=== PATIENT | female | born 1985 | race Asian ===

== ENCOUNTER → 2016-11-23 | Outpatient (CLI) | payer OTHER ==
[~2016-11-23] MED LIST: ASPI325T45 PO; HYDR-5688 PO
--- NOTE | 2016-11-23 17:12 | DIAGNOSTIC IMAGING REPORT ---
MRI THE RIGHT KNEE NO CONTRAST CLINICAL HISTORY: Right knee pain. Trauma. COMPARISON STUDY: No previous studies for comparison. FINDINGS: Imaging was performed the sagittal, coronal, and axial planes. There is a suprapatellar joint effusion. There is marrow edema involving the posterior aspect of the tibial plateau, consistent with a bone bruise. There is a tear the anterior cruciate ligament. The posterior cruciate ligament appears intact. The quadriceps and patellar tendons appear intact. The lateral collateral ligament appears intact. There is a minimal medial collateral ligament strain. The medial meniscus appears intact. There is a lateral meniscal tear with a flipped meniscal fragment IMPRESSION: 1. Tear of the anterior cruciate ligament 2. Lateral meniscal tear 3. Minimal medial collateral ligament strain 4. Bone bruise involving the posterior aspect of the tibial plateau 5. Joint effusion Electronically signed by: Dinesh Miranda M.D. 11/23/2016 5:10 PM Dictated Date/Time: 11/23/2016 5:05 PM
== END | disposition home or self-care (01) ==
PROVIDERS: ATTEND Family Medicine
DX: S89.91XA Unspecified injury of right lower leg, initial encounter (principal); X58.XXXA Exposure to other specified factors, initial encounter

== ENCOUNTER → 2016-12-03 | Day surgery (SDC) | payer OTHER ==
[2016-11-27 08:56] VITALS: Ht 162.6 cm; Wt 52.0 kg
[~2016-12-03] VITALS: Ht 162.6 cm; Wt 52.0 kg
[~2016-12-03] MED LIST changes: +ATROPINE SULFATE 0.1 MG/ML 5ML SYR IV PRN; +BUPIVACAINE 0.5 % 5 MG/1 ML MPF 30ML VIAL ONE; +BUPIVACAINE/EPINEPHRINE 0.5% MPF 1:200,000 10 ML VIAL ONE; +CEFAZOLIN 1000MG/55 ML D5W IV SCH; +CEFAZOLIN IV 1,000 MG in DEXTROSE 5% 50ML 50 ML IV SCH; +CEFAZOLIN SOD 1 GM VIAL ONE; +DEXAMETHASONE SOD INJ 4 MG/ML VIAL ONE; +EpHEDrine SULFATE INJ 50 MG/ML AMP IV PRN; +EpINEphrine INJ 1MG/ML AMP 1 MG/ML AMP ONE; +FENTANYL CITRATE INJ 50 MCG/1 ML 2 ML VIAL ONE; +GLYCOPYRROLATE INJ 0.2 MG/ML VIAL ONE; +LACTATED RINGER'S 1000ML 1,000 ML IV SCH; +LIDOCAINE HCL 2% 2 ML VIAL (20MG/ML) ONE; +LIDOCAINE/EPINEPHRINE 1% INJ 50 ML VIAL ONE; +MIDAZOLAM HCL 1 MG/ML 2ML VIAL ONE; +MoRPHine SULFATE 2 MG/ML CARP IV PRN; +MoRPHine SULFATE 4 MG/ML 1 ML CARP\\VIAL IV PRN; +ONDANSETRON INJ 2 MG/ML 2 ML VIAL IV PRN; +ONDANSETRON INJ 2 MG/ML 2 ML VIAL ONE; +OXYCODONE/ACETAMINOPHEN 5-325 TAB PO PRN; +PROMETHAZINE HCL INJ 6.25 MG in SODIUM CHLORIDE 0.9% 50ML 50 ML IV PRN; +PROPOFOL IV EMULSION 10 MG/ML 20 ML VIAL IV ONE; +SCOPOLAMINE 1.5 MG TDSY TD ONE; +SODIUM CHLORIDE 0.9% 1000ML 1,000 ML IV SCH; +SODIUM CHLORIDE 0.9% INJ 10 ML VIAL ONE
--- NOTE | 2016-12-03 06:46 | History & Physical Bridge Note ---
H&P Re-Evaluation Bridge Note: I have examined the patient, reviewed the History & Physical and in the interval since the performance of the History & Physical I have noted the following changes of clinical significance: No changes noted
[2016-12-03] MEDS: EpINEphrine HCL INJ 1 MG/ML 5ML SYRINGE ONE ×2 (10:30→10:37)
--- NOTE | 2016-12-03 12:28 | Discharge Instructions-SurgCtr ---
Discharge Instructions Date of Service Dec 03, 2016. Visit Reason for Visit: Right Knee Acl, Lateral Meniscus Tear Discharge Discharge Diagnosis / Problem: right knee anterior cruciate ligament tear, lateral meniscus tear Discharge Goals Goal(s): Decrease discomfort, Improve function, Increase independence Activity Recommendations Activity Limitations: per Instructions/Follow-up section Weightbearing Status: Right non-weightbearing Anesthesia . Post Anesthesia Instructions: If you have had General Anesthesia or IV Sedation: * Do not drive today. * Resume driving when surgeon permits. * Do not make important decisions or sign legal documents today. * Call surgeon for: 1. Temperature elevations greater than 101 degrees F. 2. Uncontrollable pain. 3. Excessive bleeding. 4. Persistent nausea and vomiting. 5. Medication intolerance (nausea, vomiting or rash). * For nausea and vomiting use only clear liquids such as: tea, soda, bouillon until nausea subsides, then gradually increase diet as tolerated. * If you have any concerns or questions, call your surgeon's office. If physician is unavailable and it is an emergency, call 911 or go to the nearest emergency room. . Instructions / Follow-Up Instructions / Follow-Up The following instructions are a useful guide to questions you may have after your Anterior Cruciate Ligament Reconstruction surgery. If you have any questions contact the office at . ACTIVITY RECOMMENDATIONS: * Heavy manual labor is not permitted until 4-6 months after surgery. * Sports are not permitted until 6-9 months after surgery. * Return to activity is individualized. * DRIVING: Driving is not permitted until 3-4 weeks after surgery at a minimum. Please ask your doctor when it is safe to resume driving. If you have an automatic vehicle and your left leg has been operated on, then you may begin driving as soon as you are comfortable and can drive safely. * BATHING: You may shower or sponge-bathe immediately after surgery. The dressing will need to be covered with a plastic bag or plastic wrap until the dressing is changed on the fourth or fifth day after surgery. Once the dressing has been changed on the fourth or fifth day after surgery, you may shower and get the incision wet. * Wash with regular soap and water. * Do not bathe (submerge the incision), soak, swim or use a hot tub until the incision is completely healed over with normal skin and the doctor has given the OK to proceed. * There is no need to apply any ointments, powders or salves to your incision. * Do not apply alcohol or hydrogen peroxide directly to the incision. Diluted peroxide (50:50 mixture with sterile saline) may be used to clean dried blood from around the incision area. WORK/SCHOOL: * You may return to sedentary work or school when you are feeling comfortable. This is usually 3-7 days after surgery. * Expect increased discomfort with increased activity. Continue to elevate and ice the leg as much as possible. DIET: * Resume previous diet. MEDICATIONS: * You will have a prescription for pain medication and an anti-inflammatory medication after surgery. Use the pain pills for severe pain and the anti-inflammatory for less severe pain. * Once the pain pills have run out, try to use the anti-inflammatory. If this is not effective then contact the office for assistance. * The pain medication may cause nausea, constipation and sleepiness. You should see how they affect you before driving or similar activity. * The anti-inflammatory may cause stomach upset and bleeding. If this occurs, let your doctor know immediately . * Some patients may need blood clot prevention. This can be done with either a pill or a simple shot. Your doctor will advise you on when to begin these medications and how to take them. * Do not take aspirin or other anti-inflammatory products (i.e. Advil or Aleve ) if taking blood thinner medication. * Take a stool softener like Colace or a stimulant like Senokot to prevent constipation. SPECIAL CARE INSTRUCTIONS: The following instructions are a useful guide to questions you may have after your surgery. If you have any questions contact the office at . ICE: * You have the option of an ice cooler, gel packs or ice bags. * If you have an ice cooler, refer to the instructions for that device. * If you do not have an ice cooler, then you will need to use ice bags or gel packs. * Do not apply ice directly to the skin. * Use a thin dressing or stockinet between the skin and ice bag. * Apply ice for 20-30 minutes and repeat every 2-4 hours. This is especially important for the first 7-10 days after surgery. * Once the pain improves, use ice as needed. * The ice cooler can be used continuously. ELEVATION: * Keep your leg elevated at or above the level of your heart as much as possible. * Expect some increased discomfort and swelling if you are standing for any length of time. * When lying down, avoid placing anything under your knee. Rather, prop your leg up by placing several pillows under your heel or calf. DRESSING: * Your dressing will be changed at your first therapy appointment approximately 4-5 days after surgery. * Band-Aids, tape strips or gauze may be applied. You may then change your dressing daily. * Always wash your hands prior to touching the incision area. * Reapply dressing followed by the Conner wrap or Tubi-mailmaster stockinet, ice cooling pad and then the brace. * Once the stitches are removed, you may leave the wound open to air or cover with an Conner Bandage or Tubi-mailmaster stockinet. * If you have been given a white elastic stocking (PARUL hose), wear as much as possible for the first 1-3 weeks depending on swelling. * Expect some bloody drainage for the first few days after surgery. * Leave the tape strips in place for 5-7 days. * Band-Aids and gauze may be changed daily. CRUTCHES: * You will need to use crutches after surgery. * Until your first doctor's appointment, you must use your crutches at all times when walking and should put no more than 50% of your normal weight on the surgical leg. * After your first doctor's appointment, you may gradually progress to full weight bearing and discontinue crutches as tolerated under the guidance of your therapist. * If you have had a microfracture procedure done, you may be advised to be non- weight bearing for up to 6 weeks. BRACE: * After surgery, you will be placed into a range of motion brace locked with your leg straight. This brace is to be worn at all times when walking (even with the crutches) and sleeping until your first doctors appointment. * The brace may be removed for therapy. * After your first therapy appointment, your therapist will open the brace to allow bending of the knee once your muscles are working better. * Until your first doctor's appointment, you should sleep with your brace locked with your knee fully straight. * If you have chosen to use a functional ACL brace then this brace will be supplied about 2-3 months after your surgery. During that time, you will attend therapy 2- 3 times per week. You will also need to do daily exercises for range of motion and strength as instructed. PROBLEMS/QUESTIONS: * If you have any problems such as severe pain, numbness, tingling or high fevers or if you have any questions, please contact the office at [phone]. * It is not uncommon to have some numbness and tingling after the surgery especially if you have had a nerve block done. This should gradually improve over the first 1- 2 days. If this persists longer or worsens then contact the office. FOLLOW UP VISIT: * If not already scheduled, please call the office at to schedule follow-up appointments for approximately 10 days and one month after surgery followed by monthly appointments thereafter. * You will start physical therapy on 12/07/2016 at 10:30 AM. * You have a follow-up appointment with Dr. Hall on 12/16/2016 at 1:00 PM Diet Recommendations Home Diet: no limitations, resume previous diet Pending Studies Studies pending at discharge: no Medical Emergencies . Who to Call and When: Medical Emergencies: If at any time you feel your situation is an emergency, please call 911 immediately. . Non-Emergent Contact Non-Emergency issues call your: Surgeon Call Non-Emergent contact if: temperature is above 101, your pain is not controlled, wound has increased drainage, wound has increased redness, wound has increased pain, you have any medication questions . . "Provider Documentation" section prepared by Betzaida Domínguez. . [place] Drug Monitoring Program Search Results: patient reviewed within database, no issues identified
--- NOTE | 2016-12-03 12:32 | [facility] Operative Report ---
Operative Report Operative Date Dec 03, 2016. Pre-Operative Diagnosis Right Knee Anterior Cruciate Ligament, Lateral Meniscus Tear Post-Operative Diagnosis same as preop Procedure(s) Performed Right Knee Arthroscopic Anterior Cruciate Ligament Reconstruction With Patella Bone Tendon Bone Autograft, Right Lateral Meniscus Repair Surgeon Dr. Hall Battery Starter Surgeon(s) Betzaida Domínguez PA-C, Dr. Tez Martinez Estimated Blood Loss 10ml Findings Anterior cruciate ligament tear right knee, bucket handle lateral meniscal tear Specimens none per surgeon Drains none Anesthesia Gen. with peripheral nerve block Complication(s) None Disposition Recovery Room / PACU Indications Patient is a 31-year-old female status post right knee injury approximately 2 weeks ago. She had immediate pain and felt a pop in her right knee. Unable to comfortably weight-bear. He was seen and evaluated at [facility] and an MRI was ordered. She was referred to our office for orthopedic evaluation and treatment. X-rays are negative for fracture. MRI showed complete anterior cruciate ligament tear with bucket-handle lateral meniscal tear. Due to these findings surgical intervention was recommended. She agreed to proceed with surgery. Risks and complications were discussed. Informed consent was obtained. Description of Procedure Patient was taken to the operating room and placed under general anesthesia. She was given a peripheral nerve block preoperatively. She was given 1 g of IV Ancef for surgical prophylaxis. Timeout was performed. She was prepped and draped in routine sterile fashion. I was present the entire case, please see Dr. Hall's operative report for further detail. Patient was awakened and taken to the recovery room in stable condition. I attest to the content of the Intraoperative Record and any orders documented therein. Any exceptions are noted below.
[2016-12-03] MEDS: FENTANYL CITRATE INJ 50 MCG/1 ML 2 ML VIAL IV PRN ×2 (12:46→13:03)
[2016-12-03 13:47] VITALS: TEMP 36.5
--- NOTE | 2016-12-03 14:06 | Anesthesia Progress Nt - [facility] ---
Anesthesia Post Op Note Date & Time Dec 03, 2016 at 14:06 Vital Signs Pain Intensity: 4 Vital Signs Past 12 Hours Date Time Temp Pulse Resp B/P (MAP) Pulse Ox O2 Delivery O2 Flow Rate FiO2 12/03/16 13:47 36.5 78 16 135/87 (103) 100 Room Air 12/03/16 13:36 69 18 100 12/03/16 13:36 68 18 12/03/16 13:35 140/95 12/03/16 13:34 36.7 66 16 140/95 (81) 100 Room Air 12/03/16 13:31 60 23 12/03/16 13:31 62 23 99 12/03/16 13:30 130/94 12/03/16 13:26 76 15 12/03/16 13:26 71 15 100 12/03/16 13:25 145/96 12/03/16 13:21 86 16 12/03/16 13:21 86 16 100 12/03/16 13:20 134/95 12/03/16 13:16 70 18 100 12/03/16 13:16 68 18 12/03/16 13:15 136/96 12/03/16 13:11 61 15 12/03/16 13:11 60 15 100 12/03/16 13:10 138/98 12/03/16 13:06 58 13 12/03/16 13:06 56 13 100 12/03/16 13:05 138/103 12/03/16 13:01 72 18 12/03/16 13:01 73 18 100 12/03/16 13:00 135/95 12/03/16 12:56 67 23 12/03/16 12:56 67 23 100 12/03/16 12:55 138/100 12/03/16 12:51 62 25 12/03/16 12:51 61 25 100 12/03/16 12:50 138/90 12/03/16 12:46 65 21 100 12/03/16 12:46 65 21 12/03/16 12:45 138/98 12/03/16 12:41 79 25 12/03/16 12:41 78 25 100 12/03/16 12:40 134/110 12/03/16 12:36 34 12/03/16 12:36 91 34 151/109 12/03/16 12:35 36.7 83 24 151/109 100 Mask 5 12/03/16 08:55 0 12/03/16 08:51 109/74 12/03/16 08:50 69 12/03/16 08:50 69 17 100 12/03/16 08:46 112/72 12/03/16 08:45 76 0 100 12/03/16 08:45 76 12/03/16 08:41 118/78 12/03/16 08:40 73 12/03/16 08:40 74 19 100 12/03/16 08:36 117/79 12/03/16 08:35 66 14 100 12/03/16 08:35 66 12/03/16 08:32 121/85 12/03/16 08:30 64 12/03/16 08:30 63 13 100 12/03/16 08:26 125/87 12/03/16 08:25 82 12/03/16 08:25 81 23 100 12/03/16 08:21 128/89 12/03/16 08:20 65 12/03/16 08:20 64 0 100 12/03/16 08:16 130/95 12/03/16 08:15 70 0 100 12/03/16 08:15 71 12/03/16 08:11 128/92 12/03/16 08:10 71 12/03/16 08:10 72 0 100 12/03/16 08:06 138/84 12/03/16 08:05 69 12/03/16 08:05 67 0 100 12/03/16 08:01 127/88 12/03/16 08:00 69 12/03/16 08:00 67 0 100 12/03/16 06:52 36.8 75 16 137/93 (108) 99 Room Air 12/03/16 06:43 137/93 Notes Mental Status: alert / awake / arousable, participated in evaluation Pt Amnestic to Procedure: Yes Nausea / Vomiting: adequately controlled Pain: adequately controlled Airway Patency, RR, SpO2: stable & adequate BP & HR: stable & adequate Hydration State: stable & adequate Anesthetic Complications: no major complications apparent
[2016-12-03 14:15] VITALS: BP 139/87; PULSE 66; O2SAT 99
--- NOTE | 2016-12-03 16:32 | [facility] Operative Report ---
Operative Report Operative Date Dec 03, 2016. Pre-Operative Diagnosis Right Knee Anterior Cruciate Ligament, Lateral Meniscus Tear Post-Operative Diagnosis same as preop Procedure(s) Performed Right Knee Arthroscopic Anterior Cruciate Ligament Reconstruction With Patella Bone Tendon Bone Autograft, Right Lateral Meniscus Repair Surgeon Dr. Hall Sighter Surgeon(s) Betzaida Domínguez PA-C, Dr. Tez Martinez Estimated Blood Loss 10ml Findings Lateral meniscus tear bucket handle type complete tear of the anterior cruciate ligament chronic renal chondrosis medial femoral condyle Specimens none per surgeon Drains none Anesthesia laryngeal mask with peripheral nerve block Complication(s) None Disposition Recovery Room / PACU Implants Multiple sutures and inferior screws 2 Indications Patient's 31-year-old female from [place]. She has a history of a partial anterior cruciate ligament tear approximately 10 years ago. She recently had an injury jumping resulting in a bucket-handle tear of her lateral meniscus. She's been seen in a violated in the office and MRI confirms the diagnosis. Treatment options risks and benefits were discussed and she has elected to proceed with operative intervention. Informed consent was obtained. Description of Procedure Patient was identified as alan Schafer. She identified the operative site as the right knee. A preoperative surgical timeout was performed. Appropriate dose of IV antibiotics was given. She was taken the operating room positioned supine on the operating table in the anesthetic was administered. A lateral posterior she is for stressing the knee a tourniquet was applied to the right thigh. Her right leg was prepped and draped in usual sterile fashion including the foot. Her left knee demonstrated range of motion 10/0/155. Her right knee demonstrated range of motion for/0/135. She had a 2+ positive John Paul her knee was otherwise stable. Pivot shift was not assessed. DVT prophylaxis with early patient mobility and aspirin postoperatively foot pumps intraoperatively. The procedure began by establishing inferolateral viewing portal superior lateral outflow portal and inferomedial working portal. Diagnostic arthroscopy was then performed. There is no pathology in the suprapatellar pouch the medial and lateral gutters were unremarkable the articular surfaces of the patella and trochlea were normal. The medial compartment demonstrated an normal intact medial meniscus and the articular surfaces. The posterior medial and lateral compartment views were unremarkable except as outlined later. Intercondylar notch showed a chronically absent anterior cruciate ligament with a normal-appearing PCL. The retropatellar fat pad was debrided. There was some fibrillation on the medial femoral condyle but no notable depth to any type of cartilage damage. The lateral compartment showed a bucket-handle tear which was the first thing done during the surgery. This was reduced back into position. The articular surfaces looked normal. Tear extended back to the posterior horn it was within 3-5 mm of the meniscocapsular junction with reasonable quality tissue. Extended just anterior to the popliteal hiatus. There was elected. The. Meniscal synovium and tear site was debrided with a rasp and shaver. ceteriX novostitch was utilized for the repair. 4 vertical mattress stitches were placed through the periphery and central portion of the tear. This provided an excellent repair. It was excellent stability and meniscal apposition. The knots were tied with a S COI note and the modified Fairton knot. Prior to starting the meniscal repair the limb was exsanguinated with the Esmarch tourniquet inflated 225 mmHg. Attention was turned then to the anterior cruciate ligament reconstruction. A midline longitudinal incision was made full-thickness this flaps were created down to the patellar tendon. The peritenon was elevated off of the tendon. The patellar tendon width was approximately 27-28 mm. The central 9 mm was harvested in the usual standard fashion. He was taken to the back table or other where the graft was prepared to an overall length of 95 mm with 9 x 22 patellar block and 9 x 27 tibial block. Tissue the lateral notch and remnants of the anterior cruciate ligament which were very minimal were debrided. The anatomical loss centers of the femoral tibial anterior cruciate ligament attachments were noted based on anatomical landmarks including the medial eminence ridge anterior horn of the lateral meniscus retro-eminence ridge. On the femoral side the lateral bifurcate ridge and the lateral intercondylar ridges were utilized. This was double checked with the ruler technique. Power holes made in the appropriate place on the femoral side. He was placed in a hyperflexed position and through an accessory medial portal a 9 mm diameter socket 25 mm in depth was drilled. Low-profile reamer was utilized. The bone depth was 30 mm. Eventually a shuttling suture was applied. On the tibial side I guidepin was drilled and placed the tunnel length of 30 mm and a 9 mm tunnel was created at the anatomical center of the anterior cruciate ligament footprint. The intra-and extra-articular entrances of the tunnel were cleaned and prepared. Beveled with a rasp. The tibial tunnel was drilled first followed by the femoral tunnel. The knee was cleaned of bony debris. The anterior cruciate ligament graft was passed into place using the shuttling stitch. It fit securely. There is no roof wall or PCL impingement there was excellent tension within the graft. It was fixated with an 8 x 20 round head interference screw on the femoral side and an 8 x 20 threaded interference screw on the tibial side. The tibial side the bone block was flushed with the entrance of the tunnel and the screw was flush with it. Any tightened 2-3 mm in terminal extension. There was no roof wall or PCL impingement. The graft had excellent tension when probed. The knee was held in axonal hyperextension which was approximate 4 for this knee. Shift was eliminated and the John Paul was negative endpoint firm. Graft was inspected intra-articularly. The patellar tendon defect was reapproximated with #1 Vicryl. The patellar defect was bone grafted. The peritenon was then closed with running and interrupted 2-0 Vicryl. The skin was closed with 2-0 Vicryl and the skin with 4 -0 Monocryl subcuticular. The leg was cleaned with wet and dry sponges. A soft sterile dressing was applied along the full length Conner wrap and a hinged brace locked in extension. The patient tolerated the procedure well she was awakened from anesthesia and taken to the recovery room stable condition. There were no specimens or complications. Counts were correct in the case. Blood loss was minimal. At the conclusion operations both patient's friend informed of my findings in detail postoperative instructions were given. He'll be rehabilitated according to the anterior cruciate ligament rehabilitation protocol. I'll likely back things off a little bit based upon her age and associated pathology. Tourniquet was let down at the conclusion the procedure after approximately 130 minutes of inflation there is no significant bleeding. Hemostasis performed with the electrocautery and pressure. I attest to the content of the Intraoperative Record and any orders documented therein. Any exceptions are noted below.
== END | disposition home or self-care (01) ==
LOC: X.SURG 06:15
PROVIDERS: ATTEND Physical Medicine & Rehabilitation Sports Medicine
DX: S83.511A Sprain of anterior cruciate ligament of right knee, initial encounter (principal); S83.251A Bucket-handle tear of lateral meniscus, current injury, right knee, initial encounter; X50.9XXA Other and unspecified overexertion or strenuous movements or postures, initial encounter; B18.1 Chronic viral hepatitis B without delta-agent; Z90.721 Acquired absence of ovaries, unilateral; Z82.49 Family history of ischemic heart disease and other diseases of the circulatory system

== ENCOUNTER → 2016-12-16 | Outpatient (CLI) | payer OTHER ==
[~2016-12-16] MED LIST changes: -ATROPINE SULFATE 0.1 MG/ML 5ML SYR IV PRN; -BUPIVACAINE 0.5 % 5 MG/1 ML MPF 30ML VIAL ONE; -BUPIVACAINE/EPINEPHRINE 0.5% MPF 1:200,000 10 ML VIAL ONE; -CEFAZOLIN 1000MG/55 ML D5W IV SCH; -CEFAZOLIN IV 1,000 MG in DEXTROSE 5% 50ML 50 ML IV SCH; -CEFAZOLIN SOD 1 GM VIAL ONE; -DEXAMETHASONE SOD INJ 4 MG/ML VIAL ONE; -EpHEDrine SULFATE INJ 50 MG/ML AMP IV PRN; -EpINEphrine INJ 1MG/ML AMP 1 MG/ML AMP ONE; -FENTANYL CITRATE INJ 50 MCG/1 ML 2 ML VIAL ONE; -GLYCOPYRROLATE INJ 0.2 MG/ML VIAL ONE; -LACTATED RINGER'S 1000ML 1,000 ML IV SCH; -LIDOCAINE HCL 2% 2 ML VIAL (20MG/ML) ONE; -LIDOCAINE/EPINEPHRINE 1% INJ 50 ML VIAL ONE; -MIDAZOLAM HCL 1 MG/ML 2ML VIAL ONE; -MoRPHine SULFATE 2 MG/ML CARP IV PRN; -MoRPHine SULFATE 4 MG/ML 1 ML CARP\\VIAL IV PRN; -ONDANSETRON INJ 2 MG/ML 2 ML VIAL IV PRN; -ONDANSETRON INJ 2 MG/ML 2 ML VIAL ONE; -OXYCODONE/ACETAMINOPHEN 5-325 TAB PO PRN; -PROMETHAZINE HCL INJ 6.25 MG in SODIUM CHLORIDE 0.9% 50ML 50 ML IV PRN; -PROPOFOL IV EMULSION 10 MG/ML 20 ML VIAL IV ONE; -SCOPOLAMINE 1.5 MG TDSY TD ONE; -SODIUM CHLORIDE 0.9% 1000ML 1,000 ML IV SCH; -SODIUM CHLORIDE 0.9% INJ 10 ML VIAL ONE
== END | disposition home or self-care (01) ==
LOC: C.RDSM 13:00
PROVIDERS: ATTEND Physical Medicine & Rehabilitation Sports Medicine
DX: S83.511A Sprain of anterior cruciate ligament of right knee, initial encounter (principal); X58.XXXA Exposure to other specified factors, initial encounter